=== PATIENT | male | born 2000 | race Caucasian/White ===

== ENCOUNTER 2024-10-27 11:12 | Emergency (ER) | payer MEDICAID ==
[~2024-10-27] VITALS: Ht 175.3 cm; Wt 104.0 kg
[2024-10-27 11:14] VITALS: O2SAT 97
[2024-10-27] MEDS: LEVETIRACETAM 1000MG PREMIX 100 ML IV ONE (11:31)
[2024-10-27 11:57] LABS: HEMATOCRIT. 40.7 % (42.0-52.0); HEMOGLOBIN. 13.9 g/dL (14.0-18.0); MEAN CORPUSCULAR HGB CONC 34.2 g/dL (31.0-37.0); MEAN CORPUSCULAR VOLUME 90.7 fL (80.0-94.0); MEAN PLATELET VOLUME 7.3 fl (7.4-10.4); PLATELET 158 x1000/uL (130-400); RED BLOOD CELL COUNT 4.48 mill/uL (4.7-6.1); RED CELL DISTRIBUTION WIDTH 14.7 % (11.6-14.6); WHITE BLOOD COUNT 10.2 x1000/uL (4.5-11.0)
[2024-10-27 12:03] LABS: CHLORIDE 102 mEq/L (98-107); POTASSIUM 3.4 mEq/L (3.5-5.1); SODIUM 140 mEq/L (136-145)
[2024-10-27 12:04] LABS: CALCIUM 9.1 mg/dL (8.7-10.4); CARBON DIOXIDE 29 mEq/L (21-32); DIFFERENTIAL COMMENT 1
[2024-10-27 12:09] LABS: CREATININE 0.7 mg/dL (0.6-1.3); GLUCOSE 226 mg/dL (70-105); UREA NITROGEN BLOOD 16 mg/dL (9-23)
[2024-10-27 12:10] LABS: ETHANOL BLOOD < 10 mg/dL (<10)
[2024-10-27] MEDS: ACETAMINOPHEN 325MG TABLET PO ONE (12:26)
[2024-10-27 12:40] VITALS: BP 120/84; PULSE 68; RESP 18; TEMP 36.9; O2SAT 99
[2024-10-27 13:07] LABS: PLATELET ESTIMATE NORMAL
== END 2024-10-27 12:55 | disposition home or self-care (01) ==
LOC: ER 11:12
DX: R56.9 Unspecified convulsions (principal); F17.200 Nicotine dependence, unspecified, uncomplicated; F12.90 Cannabis use, unspecified, uncomplicated; Z79.899 Other long term (current) drug therapy
CPT/HCPCS: 80048; 80320; 85025; 36415; 70450; 96374; 99285; J1953; Z7610 ×2; A4606; G0480